=== PATIENT | female | born 1965 | race Caucasian/White ===

== ENCOUNTER 2017-10-06 12:20 | Emergency (ER) | payer OTHER ==
[~2017-10-06] VITALS: Ht 154.9 cm; Wt 59.0 kg
== END 2017-10-06 18:16 | disposition home or self-care (01) ==
LOC: ER 12:20
DX: S50.11XA Contusion of right forearm, initial encounter (principal); L08.9 Local infection of the skin and subcutaneous tissue, unspecified; W55.12XA Struck by horse, initial encounter; Y93.89 Activity, other specified; Y92.89 Other specified places as the place of occurrence of the external cause; Y99.8 Other external cause status